=== PATIENT | male | born 1960 | race Caucasian/White ===

== ENCOUNTER 2020-08-26 11:09 | Emergency (ER) | payer OTHER ==
[~2020-08-26 11:09] MED LIST: ALLEGRA ALLERG180 MG PO; ASPIRIN EC81 MG PO; FLONASE ALLER15.8 ML
[2020-08-26 11:50] LABS: BASOPHIL 0.2 % (0-2); EOSINOPHIL 2.7 % (0-5); HCT 49.3 % (42.0-52.0); HGB 16.2 g/dl (13.2-18.0); LYMPHOCYTE 11.1 % (15-48); MCH 31.5 pg (25.0-31.0); MCHC 32.9 g/dL (32.0-36.0); MCV 95.9 fL (78.0-100.0); MONOCYTE 10.2 % (0-12); MPV 10.5 fL (6.0-9.5); NEUTROPHIL 75.5 % (41-80); NRBC 0; PLT 214 K/uL (150-400); RBC 5.14 M/uL (4.70-6.00); RDW 13.2 % (11.5-14.0); WBC 9.5 K/uL (4.0-10.5)
[2020-08-26 12:07] LABS: BUN/CREAT RATIO (CALC) 14.4 RATIO; CREATININE 1.04 mg/dL (0.67-1.17); POTASSIUM 4.5 mmol/L (3.5-5.1)
[2020-08-26] MEDS ORDERED: FLOMAX0.4 MG PO (12:46)
[2020-08-26] MEDS ORDERED: NAPROXEN500 MG PO (12:46)
[2020-08-26] MEDS ORDERED: NORCO 5-325 TA1 EACH PO (12:46)
== END 2020-08-26 12:55 | disposition home or self-care (01) ==
LOC: FER 11:09
PROVIDERS: Emergency Medicine
DX: N13.2 Hydronephrosis with renal and ureteral calculous obstruction (principal); I10 Essential (primary) hypertension; F17.210 Nicotine dependence, cigarettes, uncomplicated; Z87.442 Personal history of urinary calculi; Z86.79 Personal history of other diseases of the circulatory system; Z79.899 Other long term (current) drug therapy
CPT/HCPCS: 36415; 80048; 85025; J1885

== ENCOUNTER 2020-08-28 14:20 | Emergency (ER) | payer OTHER ==
[~2020-08-28 14:20] MED LIST changes: +FLOMAX0.4 MG PO; +NAPROXEN500 MG PO; +NORCO 5-325 TA1 EACH PO
[2020-08-28 15:53] LABS: BASOPHIL 0.2 % (0-2); EOSINOPHIL 2.6 % (0-5); HCT 47.1 % (42.0-52.0); HGB 15.6 g/dl (13.2-18.0); LYMPHOCYTE 6.7 % (15-48); MCH 31.7 pg (25.0-31.0); MCHC 33.1 g/dL (32.0-36.0); MCV 95.7 fL (78.0-100.0); MONOCYTE 11.1 % (0-12); MPV 10.5 fL (6.0-9.5); NEUTROPHIL 79.1 % (41-80); NRBC 0; PLT 186 K/uL (150-400); RBC 4.92 M/uL (4.70-6.00); RDW 13.2 % (11.5-14.0); WBC 12.7 K/uL (4.0-10.5)
[2020-08-28 15:54] LABS: BILIRUBIN NEGATIVE (NEGATIVE); BLOOD 3+ Ery/uL (NEGATIVE); CLARITY CLEAR (CLEAR); COLOR YELLOW (YELLOW); GLUCOSE (U) NORMAL (NORMAL); LEUKOCYTES NEGATIVE Leu/uL (NEGATIVE); NITRITE NEGATIVE (NEGATIVE); PROTEIN NEGATIVE (NEGATIVE); UROBILINOGEN 0.2 mg/dL (0.2-1.0)
[2020-08-28 16:04] LABS: BUN/CREAT RATIO (CALC) 12.8 RATIO; CREATININE 1.41 mg/dL (0.67-1.17); POTASSIUM 4.7 mmol/L (3.5-5.1)
[2020-08-28 16:13] LABS: URINARY WBC RARE
[2020-08-28 16:14] LABS: BACTERIA TRACE
[2020-08-28] MEDS ORDERED: PERCOCET 10-321 EACH PO (17:22)
== END 2020-08-28 17:35 | disposition home or self-care (01) ==
LOC: FER 14:20
PROVIDERS: Emergency Medicine
DX: N20.1 Calculus of ureter (principal); F17.210 Nicotine dependence, cigarettes, uncomplicated; Z86.79 Personal history of other diseases of the circulatory system
CPT/HCPCS: 36415; 80048; 81001; 85025; J1170; J2405